=== PATIENT | male | born 1995 | race Two or more races ===

== ENCOUNTER 2023-12-12 19:30 | Emergency (ER) | payer MEDICAID ==
[~2023-12-12] VITALS: Ht 177.8 cm; Wt 65.8 kg
[2023-12-12 21:13] VITALS: TEMP 98
[2023-12-13 00:33] VITALS: BP 138/84; O2SAT 99
== END 2023-12-13 03:08 | disposition home or self-care (01) ==
LOC: ER 19:44
DX: S13.4XXA Sprain of ligaments of cervical spine, initial encounter (principal); M25.512 Pain in left shoulder; R07.81 Pleurodynia; M25.552 Pain in left hip; M25.562 Pain in left knee; V89.2XXA Person injured in unspecified motor-vehicle accident, traffic, initial encounter; Y93.89 Activity, other specified; Y92.89 Other specified places as the place of occurrence of the external cause; Y99.8 Other external cause status
CPT/HCPCS: 71250-TC; 72125-TC; 73564-TC